=== PATIENT | male | born 1960 | race Caucasian/White ===

== ENCOUNTER 2016-10-27 09:32 | Emergency (ER) | payer OTHER ==
[2016-10-27] MEDS ORDERED: KETOROLAC TROMETHAMINE 60 MG/2 ML VIAL ONE (09:44)
[2016-10-27] MEDS ORDERED: CYCLOBENZAPRINE HCL 10 MG TABLET (FP) ONE (09:44)
[2016-10-27 09:52] VITALS: BP 130/83; PULSE 63; TEMP 97.8; BMI 26.8
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
== END 2016-10-27 10:12 | disposition home or self-care (01) ==
LOC: JERFT 09:32 → JER 09:32 → JERFT 10:12
DX: S39.012A Strain of muscle, fascia and tendon of lower back, initial encounter (principal); W00.0XXA Fall on same level due to ice and snow, initial encounter; Y93.89 Activity, other specified; Y92.89 Other specified places as the place of occurrence of the external cause; Y99.0 Civilian activity done for income or pay
CPT/HCPCS: 99281-25

== ENCOUNTER 2017-09-21 09:12 | Day surgery (SDC) | payer BC ==
--- NOTE | 2017-09-15 09:12 | HP ---
DATE OF ADMISSION: 09/21/2017 DATE OF DICTATION: 09/06/2017 Patient to be admitted through the [facility] [place] in the near future, date to be determined. HISTORY: This is a 57-year-old man who for some time now has had a known right inguinal hernia. It has become more symptomatic recently. He has finally opted to move in the direction of definitive management. No underlying GI, , or respiratory complaints to suggest predisposition to hernia formation. 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 That may have been a contributing factor. Patient has no significant past medical history apart from prostate cancer for which he is status post robotic radical prostatectomy completed in February 2017. ALLERGIES: None known. REGULAR MEDICATIONS: Melatonin, probiotics, zinc, vitamin D only. SOCIAL HISTORY: Negative tobacco. Patient did smoke up until 15 years ago. Negative alcohol. FAMILY HISTORY: Father: History of prostate cancer. Mother: History of dementia. REVIEW OF SYSTEMS: Otherwise nil. PHYSICAL EXAMINATION: Patient examined in the erect position. There is an obvious reducible right inguinal hernia. This is moderate in size. The left groin is intact. The scrotum is unremarkable. IMPRESSION: Symptomatic, reducible right inguinal hernia. History of radical prostatectomy. PLAN: Open right inguinal hernia repair with mesh. Patient not felt to be a good candidate for laparoscopic hernia surgery given his history of a radical prostatectomy. Indications, alternatives, possible complications reviewed. Consent obtained. Patient is to be seen preoperatively by Birdie Mark MD. Please refer to his notes for those medical details. John [id number] cc: Birdie Mark MD MTDD
[2017-09-15 11:31] VITALS: BMI 26.4
[2017-09-21] MEDS ORDERED: MIDAZOLAM HCL 2 MG/2 ML SINGLE DOSE VIAL ONE (10:45)
[2017-09-21] MEDS ORDERED: ROPIVACAINE HCL 0.5% 30ML VIAL ONE (10:45)
[2017-09-21] MEDS ORDERED: DEXAMETHASONE SOD PHOSPHATE/PF 10 MG/ML SDV ONE (10:45)
[2017-09-21] MEDS ORDERED: PROPOFOL 20 ML ONE ×2 (11:05)
[2017-09-21] MEDS ORDERED: fentaNYL CITRATE 250 MCG/5 ML VIAL ONE (11:05)
[2017-09-21] MEDS ORDERED: ROCURONIUM BROMIDE 50 MG/5 ML VIAL ONE ×2 (11:06)
[2017-09-21] MEDS ORDERED: LIDOCAINE HCL/PF 2% SDV 5ML VIAL ONE (11:09)
[2017-09-21] MEDS ORDERED: ONDANSETRON 4 MG/2 ML VIAL ONE (11:25)
[2017-09-21] MEDS ORDERED: KETOROLAC TROMETHAMINE 30 MG/1 ML VIAL ONE (11:25)
[2017-09-21] MEDS ORDERED: DEXAMETHASONE SOD PHOSPHATE 4 MG/1 ML VIAL ONE (11:25)
[2017-09-21] MEDS ORDERED: ceFAZolin SODIUM 1 GM VIAL ONE (11:25)
[2017-09-21] MEDS ORDERED: DESFLURANE GAS 240 ML BOTTLE IH ONE (11:43)
[2017-09-21] MEDS ORDERED: NEOSTIGMINE METHYLSULFATE 0.5 MG/ML - 10 ML MDV ONE (12:05)
[2017-09-21] MEDS ORDERED: GLYCOPYRROLATE 0.2 MG/1 ML VIAL ONE (12:06)
[2017-09-21] MEDS ORDERED: PROMETHAZINE HCL 25 MG/1 ML VIAL IVPB PRN (12:40)
[2017-09-21] MEDS ORDERED: ONDANSETRON 4 MG/2 ML VIAL IVPUSH PRN (12:40)
[2017-09-21] MEDS ORDERED: oxyCODONE HCL 5 MG TABLET PO PRN ×2 (12:40)
[2017-09-21] MEDS ORDERED: LACTATED RINGERS SOLUTION 1,000 ML IV SCH (12:45)
[2017-09-21 16:53] VITALS: PULSE 45
[2017-09-21 17:08] VITALS: BP 114/65; TEMP 97.5
--- NOTE | 2017-09-22 10:41 | OP ---
DATE OF OPERATION: 09/21/2017 PREOPERATIVE DIAGNOSIS: Right inguinal hernia. POSTOPERATIVE DIAGNOSIS: Indirect right inguinal hernia. PROCEDURE: Right inguinal hernia repair with mesh/intermediate wound closure. SURGEON: Jamal Oh MD HAND WOOD SANDER: Levi Estrada MD ANESTHESIA: Drew Davis MD (general) HISTORY: This is a 57-year-old man with a history of radical prostatectomy who presents for repair of a right inguinal hernia. Indications, alternatives, possible complications reviewed. Consent was obtained. DESCRIPTION OF PROCEDURE: With the patient in the supine position, under general anesthesia, the abdomen and right groin were prepped and draped in the sterile fashion using chlorhexidine. An 8-cm right groin incision was made between the right pubic and iliac spine. The incision was deepened through the skin into the subcutaneous space. All identified vessels in the subcutaneous space were clamped, divided and ligated. Ultimately external oblique aponeurosis was reached. The external oblique aponeurosis was opened in the direction of its fibers through the external ring. The underlying inguinal orifice was identified and spared. The strips of the split external oblique aponeurosis were swept clean to the level of the pubic tubercle. At the pubic tubercle, Era drain was placed around the cord structures. Exploration of the cord revealed no obvious indirect component. The sac was from the remaining cord structures, exercising care not to injury the vas or its vascular component. The sac was mobilized to the level of the preperitoneal fat and inferior gastric vessels. The sac was opened and found to contain no structures. It was transfixed at its base with 2-0 silk suture material and the sac was amputated and sent as a specimen, labeled right inguinal hernia sac. Now directing our attention to the inguinal floor, there was attenuation of the transversalis fascia superiorly at the internal ring consistent with the indirect component. No other findings were encountered. The transversalis fascia was inspected throughout its entire length. The preperitoneal tissue was reduced. A Davol plug was placed in the preperitoneal space and fanned down under the musculature and tacked in place circumferentially with 2-0 Prolene sutures. The transversalis fascia was then imbricated in 2 layers over the Davol plug, leaving the Davol plug entirely in the preperitoneal space. This was accomplished with a continuous 2-0 Prolene suture, beginning at the pubic tubercle, moving superiorly and recreating the internal ring to prevent only a fingertip entrance and returning to the pubic tubercle where it was tied. An overlying mesh was then fashioned about the entire inguinal floor and tacked in place circumferentially with 2-0 Prolene sutures. Superior aspect of the mesh, which was pina-holed and wrapped around the cord and tacked in place, buttressing the internal ring. The cord and nerve were returned to their anatomic positions. The overlying external oblique aponeurosis was closed using a continuous 3-0 Vicryl suture. After adequate hemostasis, the wound was closed in layers. Severo fascia was approximated with a 2-0 chromic suture. The subcuticular layer was approximated using interrupted 4-0 Biosyn suture. Skin edges were closed using 4-0 Biosyn in the subcuticular space in a continuous fashion. Prior to complete closure, 10 mL of 0.5% Marcaine was freely instilled into the wound. Dermabond applied. Procedure terminated. Needle and instrument count was correct. Estimated blood loss minimal. SPECIMENS: Hernia sac. IMPLANT: Davol plug and patch. DRAINS: None. The patient tolerated the procedure and the procedure was terminated. John [id number] MTDD
--- NOTE | 2017-09-23 14:23 | PATH ---
Surgical Pathology Report Patient Name: VIRGIL LANDRY [facility]. Rec. #: [id number] /Age/Gender: 1960 (Age: 57) / M Account: [id number] Location: ON LICENSE OF [facility] Taken: 09/21/2017 Received: 09/21/2017 Reported: 09/23/2017 Physicians: Jamal Oh M.D. Specimen(s) Received INGUINAL HERNIA SAC RIGHT SIDE Clinical History Right inguinal hernia Final Diagnosis SOFT TISSUE, RIGHT INGUINAL, EXCISION: HERNIA SAC. Electronically Signed Virgil Colin M.D. Gross Description Received in formalin labeled "inguinal hernia sac right side," is a 1.4 x 1.0 x 0.4 cm portion of conklin cooper fibromembranous tissue, consistent with a hernia sac. [employer] sections are submitted in one cassette. 09/22/201709/22/2017
== END 2017-09-21 16:30 | disposition home or self-care (01) ==
LOC: FASU 09:12
PROVIDERS: ATTEND Surgery
PROC: 0YU50JZ Supplement Right Inguinal Region with Synthetic Substitute, Open Approach (ICD-10-PCS; principal; 2017-09-21 11:00)
DX: K40.90 Unilateral inguinal hernia, without obstruction or gangrene, not specified as recurrent (principal); Z85.46 Personal history of malignant neoplasm of prostate; Z90.79 Acquired absence of other genital organ(s)
CPT/HCPCS: 88302-TC; 94760